=== PATIENT | female | born 1965 | race Two or more races ===

== ENCOUNTER 2016-10-13 18:45 | Emergency (ER) | payer BC, MEDICAID ==
[~2016-10-13] VITALS: Ht 170.2 cm; Wt 106.1 kg
[2016-10-13] MEDS ORDERED: BACITRACIN-POLYMYXIN B TOPICAL OINT UD TOP ONE (20:30)
[2016-10-13] MEDS ORDERED: LIDOCAINE 1% HCL (LOCAL ANESTH.) INJ 20ML MDV IJ ONE ×2 (20:30)
[2016-10-13 20:32] VITALS: BP 147/84
== END 2016-10-13 21:01 | disposition home or self-care (01) ==
LOC: ER 18:48
DX: S61.411A Laceration without foreign body of right hand, initial encounter (principal); R05 Cough; R07.9 Chest pain, unspecified; Z88.6 Allergy status to analgesic agent; Z88.0 Allergy status to penicillin; Z88.5 Allergy status to narcotic agent; Z88.7 Allergy status to serum and vaccine; W45.8XXA Other foreign body or object entering through skin, initial encounter; Y93.89 Activity, other specified; Y99.8 Other external cause status; Y92.89 Other specified places as the place of occurrence of the external cause
CPT/HCPCS: 12002; 99283; J2001